=== PATIENT | female | born 1955 | race Caucasian/White ===

== ENCOUNTER 2017-10-11 13:05 | Emergency (ER) | payer BC ==
[~2017-10-11] VITALS: Ht 154.9 cm; Wt 83.1 kg
[2017-10-11 13:13] VITALS: BP 156/92; PULSE 84; RESP 16; TEMP 97.8; O2SAT 96
[2017-10-11] MEDS ORDERED: BUPR150XL PO (13:34)
[2017-10-11] MEDS ORDERED: SERO25TA PO (13:34)
[2017-10-11] MEDS ORDERED: ALPR.25 PO (13:34)
--- NOTE | 2017-10-11 14:09 | RADRPT ---
EXAM DATE: 10/11/2017 2:03 PM EDT AGE/SEX: 62 years / Female INDICATIONS: Left lateral foot pain post falling CLINICAL DATA: This is the patient's initial encounter. Patient reports that signs and symptoms have been present for 2 days and indicates a pain score of 7/10. MEDICAL/SURGICAL HISTORY: None. None. COMPARISON: No prior exams available for comparison. FINDINGS: Subtle ill-defined lucency at the base of the fifth metatarsal. Osseous structures are otherwise inta ct. Joint spaces are maintained. Soft tissue prominence overlying the lateral midfoot region. CONCLUSION: 1. Findings concerning for subtle nondisplaced fracture of the base of the fifth metatarsal. Electronically signed by: Qamar Mcarthur MD 10/11/2017 2:08 PM EDT
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
--- NOTE | 2017-10-11 15:10 | RADRPT ---
EXAM DATE: 10/11/2017 2:50 PM EDT AGE/SEX: 62 years / Female INDICATIONS: Fell and hit left side of head. CLINICAL DATA: This is the patient's initial encounter. Patient reports that signs and symptoms have been present for 1 day and indicates a pain score of 5/10. MEDICAL/SURGICAL HISTORY: Hypertension. Cholecystectomy. Hysterectomy. Orthopedic surgery. RADIATION DOSE: 58.92 CTDI (mGy) COMPARISON: No prior exams available for comparison. TECHNIQUE: CT of the head without contrast. Using automated exposure control and adjustment of the mA and/or kV according to patient size, radiation dose was kept as low as reasonably achievable to ob tain optimal diagnostic quality images. FINDINGS: Cerebrum: The ventricles are normal for age. There is mild widening of the sulci over the frontal l obes. No evidence of midline shift, mass lesion, hemorrhage or acute infarction. No extraaxial fluid collections are seen. Posterior Fossa: The cerebellum and brainstem are intact. The 4th ventricle is midline. The cerebe llopontine angle is unremarkable. Extracranial: The visualized portion of the orbits is intact. Skull: The calvaria is intact. No evidence of skull fracture. CONCLUSION: No acute intracranial abnormality is seen. Electronically signed by: Johnny Ledesma MD 10/11/2017 3:09 PM EDT
--- NOTE | 2017-10-11 15:17 | RADRPT ---
EXAM DATE: 10/11/2017 2:52 PM EDT AGE/SEX: 62 years / Female INDICATIONS: Fell and hit left side of head. CLINICAL DATA: This is the patient's initial encounter. Patient reports that signs and symptoms have been present for 1 day and indicates a pain score of 6/10. MEDICAL/SURGICAL HISTORY: Hypertension. Cholecystectomy. Hysterectomy. Orthopedic surgery. RADIATION DOSE: 25.18 CTDI (mGy) COMPARISON: No prior exams available for comparison. TECHNIQUE: Contiguous axial images were obtained using helical multirow detector technique. The vol umetric data was post-processed with multiplanar reconstruction in oblique axial, sagittal, and coron al planes. Using automated exposure control and adjustment of the mA and/or kV according to patient s ize, radiation dose was kept as low as reasonably achievable to obtain optimal diagnostic quality monica ges. FINDINGS: Vertebrae: Normal vertebral body height. Alignment: There is minimal anterior subluxation of C4 on C5 in the order of 2 mm. C2-3: The bony spinal canal is normal in size. No evidence of disc bulge or herniation. The neural foramina are bilaterally patent. C3-4: The bony spinal canal is normal in size. No evidence of disc bulge or herniation. The neural foramina are bilaterally patent. There is mild facet hypertrophy. C4-5: Again noted is the minimal anterior subluxation of C4 on C5. There is slight bulging of the di sc without significant stenosis. There is moderate facet hypertrophy. The neural foramina are patent bilaterally. C5-6: The disc demonstrates decreased height. There is mild disc osteophyte complex causing a mild i mpression on the anterior aspect of the thecal sac being asymmetric and worse on the left. There is u ncovertebral hypertrophy there is mild neural foraminal narrowing being worse on the right. C6-7: The distance is decreased height. There is mild disc osteophyte complex seen being asymmetric and worse on the right. This causes at least a mild impression on the chest with the thecal sac on th e right. There is uncovertebral hypertrophy. There is mild facet hypertrophy. There is mild neural fo raminal narrowing being worse on the left. C7-T1: The bony spinal canal is normal in size. No evidence of disc bulge or herniation. The neura l foramina are bilaterally patent. There is mild/moderate facet hypertrophy. CONCLUSION: 1. No acute abnormality is seen. 2. Chronic degenerative change in most prominent at the C5-C6 and C6-C7 levels. Electronically signed by: Johnny Ledesma MD 10/11/2017 3:16 PM EDT
[2017-10-11] MEDS ORDERED: TYLETAB34 PO (15:22)
== END 2017-10-11 15:48 | disposition home or self-care (01) ==
LOC: PHEFT 13:05
DX: S92.355A Nondisplaced fracture of fifth metatarsal bone, left foot, initial encounter for closed fracture (principal); M54.2 Cervicalgia; R51 Headache; I10 Essential (primary) hypertension; W01.0XXA Fall on same level from slipping, tripping and stumbling without subsequent striking against object, initial encounter; Y93.01 Activity, walking, marching and hiking; Y92.59 Other trade areas as the place of occurrence of the external cause
CPT/HCPCS: 29515; 70450; 72125; 73630; 99283; E0113